=== PATIENT | male | born 1950 | race Caucasian/White ===

== ENCOUNTER 2016-05-22 05:36 | Emergency (ER) | payer OTHER ==
[2016-05-22] MEDS ORDERED: Rocephin 1000 MG INJ IM ONE (05:45)
[2016-05-22] MEDS ORDERED: Robitussin AC Syrup Unit Dose Cup PO PRN (05:46)
[2016-05-22] MEDS ORDERED: PROVENTIL 2.5 MG/3 ML NEB IH ONE ×2 (05:46→05:51)
[2016-05-22] MEDS ORDERED: Rocephin 1000 MG INJ ONE (05:48)
[2016-05-22] MEDS ORDERED: Robitussin AC Syrup Unit Dose Cup ONE (05:48)
[2016-05-22] MEDS ORDERED: XYLOCAINE 1% HCL 20 ML MDV ONE (05:49)
--- NOTE | 2016-05-22 05:52 | ERPHSYRPT ---
- History of Present Illness Time Seen by Provider: 05/22/16 05:41 Source: patient Exam Limitations: no limitations Patient Subjective Stated Complaint: pt states he began having a fever and cough that started on 05/20/16. pt c/o productive cough and headache. Triage Nursing Assessment: pt pale, warm, moist to touch. diminished lung sounds in posterior left lung ward. wheezes noted to right upper lobe. Physician History: FOR THE PAST 4 DAYS PT HAS HAD AN INTERMITTENT HEADACHE ESPECIALLY WHEN COUGHING ; FOR THE PAST 3 DAYS COUGH PRODUCTIVE OF GREEN PHLEGM, DIAPHORESIS AND SUBJECTIVE FEVER. Allergies/Adverse Reactions: No Known Drug Allergies Allergy (Unverified 05/22/16 05:43) Home Medications: Albuterol/Ipratropium 3ml Neb* [DUONEB 0.5-3 MG/3 ml Neb] 3 ml IH QIDPRN PRN 11/27/11 [History] Albuterol Sulfate [Albuterol Sulfate Hfa] 1 puff IH UD 12/02/11 [History] Meloxicam 15 mg [Meloxicam 15 MG] 15 mg PO DAILY 05/22/16 [History] Hx Tetanus, Diphtheria Vaccination/Date Given: Yes (up to date) Hx Influenza Vaccination/Date Given: Yes Hx Pneumococcal Vaccination/Date Given: Yes Immunizations Up to Date: Yes - Review of Systems Constitutional: Fever Respiratory: Cough Neurological: Headache Endocrine: Excessive Sweating All Other Systems: Reviewed and Negative - Past Medical History Pertinent Past Medical History: Yes Neurological History: No Pertinent History ENT History: No Pertinent History Cardiac History: No Pertinent History Respiratory History: COPD Endocrine Medical History: No Pertinent History Musculoskeletal History: Arthritis GI Medical History: No Pertinent History History: No Pertinent History Psycho-Social History: No Pertinent History Male Reproductive Disorders: No Pertinent History - Past Surgical History Past Surgical History: Yes Neuro Surgical History: No Pertinent History Cardiac: No Pertinent History Respiratory: No Pertinent History Gastrointestinal: No Pertinent History Genitourinary: No Pertinent History Musculoskeletal: Orthopedic Surgery Male Surgical History: No Pertinent History Other Surgical History: thumb and knee - Social History Smoking Status: Former smoker How long have you smoked: 45 Exposure to second hand smoke: No Drug Use: none Patient Lives Alone: No - Nursing Vital Signs Nursing Vital Signs: Initial Vital Signs Temperature 99.2 F Temperature Source Oral Pulse Rate 76 Respiratory Rate 22 Blood Pressure [Right Arm] 141/74 Pain Intensity 4 - Physical Exam General Appearance: alert Eye Exam: PERRL/EOMI Ears, Nose, Throat Exam: TMs normal, pharyngeal erythema (MILD) Neck Exam: normal inspection Respiratory Exam: wheezing (MINIMAL EXPIRATORY WHEEZING OVER POSTERIOR BASES) Cardiovascular Exam: normal heart sounds Gastrointestinal/Abdomen Exam: soft, normal bowel sounds Back Exam: normal range of motion Extremity Exam: No pedal edema Neurologic Exam: alert, cooperative Skin Exam: warm, dry SpO2 Interpretation: hypoxic SpO2: 90 Oxygen Delivery: Room Air - Course Nursing assessment & vital signs reviewed: Yes - Radiology Exams Chest X-ray Interpretation: Interpreted by me (INCREASED BRONCHOVASCULAR MARKINGS) Ordered Tests: Active Orders 24 hr Category Date Time Status CHEST 1 VIEW (PORTABLE) Stat Exams 05/22/16 05:52 Ordered Respiratory Nebulizer STAT RT 05/22/16 05:46 Completed Medication Summary Generic Name Dose Route Start Last Admin Trade Name Freq PRN Reason Stop Dose Admin Guaifenesin/Codeine Phosphate 10 ml 05/22/16 05:46 05/22/16 05:53 Robitussin Ac Syrup Unit Dose Cup PO 06/21/16 05:45 10 ml QIDP PRN Administration COUGH Discontinued Medications Generic Name Dose Route Start Last Admin Trade Name Freq PRN Reason Stop Dose Admin Albuterol Sulfate 2.5 mg 05/22/16 05:46 05/22/16 05:52 Proventil 2.5 Mg/3 Ml Neb IH 05/22/16 05:47 2.5 mg STAT ONE Administration Albuterol Sulfate Confirm 05/22/16 05:51 Proventil 2.5 Mg/3 Ml Neb Administered 05/22/16 05:52 Dose 2.5 mg IH .STK-MED ONE Ceftriaxone Sodium 1,000 mg 05/22/16 05:45 05/22/16 05:53 Rocephin 1000 Mg Inj IM 05/22/16 05:46 1,000 mg STAT ONE Administration Ceftriaxone Sodium Confirm 05/22/16 05:48 Rocephin 1000 Mg Inj Administered 05/22/16 05:49 Dose 1,000 mg .ROUTE .STK-MED ONE Guaifenesin/Codeine Phosphate Confirm 05/22/16 05:48 Robitussin Ac Syrup Unit Dose Cup Administered 05/22/16 05:49 Dose 10 ml .ROUTE .STK-MED ONE Lidocaine HCl Confirm 05/22/16 05:49 Xylocaine 1% Hcl 20 Ml Mdv Administered 05/22/16 05:50 Dose 2 ml .ROUTE .STK-MED ONE - Progress Progress Note: 05/22/16 06:49 REPEAT OXYGEN SATURATION ON ROOM AIR = 94%. - Departure Time of Disposition: 06:50 Departure Disposition: Home Clinical Impression: BRONCHITIS, COPD, ARTHRITIS Condition: Fair Critical Care Time: No Referrals: DIMPLE REMY MD [Primary Care Provider] - Instructions: Bronchitis Additional Instructions: FOLLOW UP WITH PRIVATE DOCTOR TOMORROW. Prescriptions: Guaifenesin/Codeine Phosphate [Robitussin AC Syrup] 10 ml PO Q4H PRN PRN #120 ml PRN Reason: Cough Azithromycin 250 mg [Zithromax 250 MG TABLET] 250 mg PO ZPACK #6 tablet
[2016-05-22] MEDS ORDERED: Zithromax 250 MG TABLET PO ONE (06:56)
[2016-05-22] MEDS ORDERED: Zithromax 250 MG TABLET ONE (07:03)
[2016-05-22 07:20] VITALS: BP 110/69; PULSE 70; O2SAT 94
--- NOTE | 2016-05-22 09:25 | XRAY ---
Indication: Fever and cough. Comparison: August 02, 2014 AP chest again demonstrates left mid to lower lung infiltrate versus atelectasis without consolidation or large effusion. Remaining right lung and heart are stable and unremarkable. 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 Bony thorax intact. Impression: Again left mid to lower lung infiltrate/atelectasis. Correlate clinically.
== END 2016-05-22 07:21 | disposition home or self-care (01) ==
LOC: ED 05:36
DX: J40 Bronchitis, not specified as acute or chronic (principal); J44.9 Chronic obstructive pulmonary disease, unspecified; M19.90 Unspecified osteoarthritis, unspecified site; R50.9 Fever, unspecified; R05 Cough; R51 Headache
CPT/HCPCS: 71010; 94640; 96372; 99283; J0696

== ENCOUNTER 2021-11-20 14:13 | Emergency (ER) | payer MEDICARE, OTHER ==
[2021-11-20 14:26] VITALS: BP 170/82; PULSE 72; O2SAT 99
--- NOTE | 2021-11-20 14:31 | ERPHSYRPT ---
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 Pt in no apparent respiratory distress. 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 Denies any other symptoms. Timing/Duration: today Allergies/Adverse Reactions: No Known Drug Allergies Allergy (Unverified 05/22/16 05:43) Home Medications: Albuterol/Ipratropium 3ml Neb* [DUONEB 0.5-3 MG/3 ml Neb] 3 ml IH QIDPRN PRN 11/27/11 [History] Albuterol Sulfate [Albuterol Sulfate Hfa] 1 puff IH UD 12/02/11 [History] Meloxicam 15 mg [Meloxicam 15 MG] 15 mg PO DAILY 05/22/16 [History] Hx Tetanus, Diphtheria Vaccination/Date Given: Yes (up to date) Hx Influenza Vaccination/Date Given: Yes Hx Pneumococcal Vaccination/Date Given: Yes Immunizations Up to Date: Yes Travel Risk - International Travel Have you traveled outside of the country in past 3 weeks: No - Coronavirus Screening Are you exhibiting any of the following symptoms?: No Close contact with a COVID-19 positive Pt in past 14-21 Days: No - Vaccine Status Have you recieved a Covid-19 vaccination: Yes [employer]: [email or web address] - Vaccination Dates Date of 2cond Vaccination (if applicable): 2020 - Review of Systems Constitutional: No Symptoms Eyes: No Symptoms Ears, Nose, & Throat: No Symptoms Respiratory: No Symptoms Cardiac: No Symptoms Abdominal/Gastrointestinal: No Symptoms Genitourinary Symptoms: No Symptoms Musculoskeletal: No Symptoms Skin: Other (minimal bleeding from surgical wound on left arm) - Past Medical History Pertinent Past Medical History: Yes Neurological History: No Pertinent History ENT History: No Pertinent History Cardiac History: No Pertinent History Respiratory History: COPD Endocrine Medical History: No Pertinent History Musculoskeletal History: Arthritis GI Medical History: No Pertinent History History: No Pertinent History Psycho-Social History: No Pertinent History Male Reproductive Disorders: No Pertinent History - Past Surgical History Past Surgical History: Yes Neuro Surgical History: No Pertinent History Cardiac: No Pertinent History Respiratory: No Pertinent History Gastrointestinal: No Pertinent History Genitourinary: No Pertinent History Musculoskeletal: Orthopedic Surgery Male Surgical History: No Pertinent History Other Surgical History: thumb and knee - Social History Smoking Status: Former smoker How long have you smoked: 45 Exposure to second hand smoke: No Drug Use: none Patient Lives Alone: No - Nursing Vital Signs Nursing Vital Signs: Initial Vital Signs Temperature 98.1 F 11/20/21 14:20 Pulse Rate 72 11/20/21 14:20 Respiratory Rate 20 11/20/21 14:20 Blood Pressure 170/82 11/20/21 14:20 O2 Sat by Pulse Oximetry 99 11/20/21 14:20 Pain Scale Pain Intensity 3 - Physical Exam General Appearance: no apparent distress Eye Exam: PERRL/EOMI Ears, Nose, Throat Exam: normal ENT inspection Neck Exam: normal inspection Back Exam: normal inspection Extremity Exam: normal inspection, other (minimal bleeding from surgical wound. Surgical hematoma. No active bleeding now) SpO2: 99 Procedures - Laceration/Wound Repair Left Arm Time of Procedure: 14:30 Wound Location: Left, upper arm Wound Length (cm): 7 Wound's Depth, Shape: superficial Wound Explored: clean Irrigated: No Hibiclens Prep: No Wound Repaired With: Steri-strips - Course Nursing assessment & vital signs reviewed: Yes - Progress Progress: improved Counseled pt/family regarding: diagnosis, need for follow-up - Departure Departure Disposition: Home Clinical Impression: Burst sutures Qualifiers: Encounter type: initial encounter Qualified Code(s): T81.31XA - Disruption of external operation (surgical) wound, not elsewhere classified, initial encounter Condition: Stable Critical Care Time: No Referrals: DIMPLE REMY MD [Primary Care Provider] - Follow up/PCP as directed Instructions: Wound Care (DC) Additional Instructions: Discharge/Care Plan PHAM CORRALES was seen on 11/20/21 in the Emergency Room. The patient was counseled regarding Diagnosis, need for follow up and when to return to the Emergency Room. Prescriptions given: Discharge Note I have spoken with the patient and/or caregivers. I have explained the patient's condition, diagnosis and treatment plan based on the information available to me at this time. I have answered the patient's and/or caregiver's questions and addressed any concerns. The patient and/or caregivers have as good understanding of the patient's diagnosis, condition and treatment plan as can be expected at this point. The vital signs have been stable. The patient's condition is stable and appropriate for discharge from the emergency department. The patient will pursue further outpatient evaluation with the primary care physician or other designated or consulting physician as outlined in the discharge instructions. The patient and/or caregivers are agreeable to this plan of care and follow-up instructions have been explained in detail. The patient and/or caregivers have received these instruction. The patient/and or caregivers are aware that any significant change in condition or worsening of symptoms should prompt an immediate return to this or the closest emergency department or call 911.
== END 2021-11-20 14:45 | disposition home or self-care (01) ==
LOC: ED 14:13
DX: T81.31XA Disruption of external operation (surgical) wound, not elsewhere classified, initial encounter (principal); J44.9 Chronic obstructive pulmonary disease, unspecified; Z79.899 Other long term (current) drug therapy
CPT/HCPCS: 12020; 99281